=== PATIENT | female | born 1970 | race Caucasian/White ===

== ENCOUNTER 2018-03-27 13:30 | Inpatient (IN) ==
[2018-05-01] MEDS ORDERED: Dextrose 5%/NaCl 0.9% Inj 1,000 ML IV.CONT SCH (12:15)
[2018-05-01] MEDS ORDERED: Chlorhexidine Gluconate 2% 1 Pack (2 Cloths) TOPICAL ONE (12:23)
[2018-05-01] MEDS ORDERED: Metoprolol Tartrate 25 MG Tablet PO ONE (12:23)
[2018-05-01] MEDS ORDERED: Sodium Chlor 0.9% Inj 500 ML IV.SIG SCH (13:00)
[2018-05-01] MEDS ORDERED: Lidocaine PF 1% Inj 5 ML Syringe OTHER ONE (13:32)
[2018-05-01] MEDS ORDERED: Phenylephrine/NS 1000 MCG/10ML Syringe IV.PUSH ONE (13:32)
[2018-05-01] MEDS ORDERED: HYDROmorphone PF Inj 2 MG/ML Vial ONE (15:31)
[2018-05-01] MEDS ORDERED: fentaNYL Citrate Inj 100 MCG/2 ML Ampul ONE (15:36)
[2018-05-01] MEDS ORDERED: Sugammadex Inj 200 MG/2 ML Vial IV.PUSH ONE (15:52)
[2018-05-01] MEDS ORDERED: Naloxone Inj 0.4 MG/ML Vial IV.PUSH PRN (16:28)
[2018-05-01] MEDS ORDERED: Potassium Chlor 40 mEq Premix 40 MEQ/100 ML PIGGYBACK IV.SIG PRN ×2 (16:29→16:31)
[2018-05-01] MEDS ORDERED: Potassium Chlor 20 mEq Premix 20 MEQ/100 ML PIGGYBACK IV.SIG PRN ×2 (16:29→16:31)
--- NOTE | 2018-05-01 16:39 | P.BOP ---
Date of procedure: 05/01/18 Procedure: Full left colectomy, LAR,Cholecystectomy,Omental flap. Intraop colonoscopy Anesthesia: GETA Surgeon: West Lundberg MD Coordinator Skill Training Program: [facility] Estimated blood loss (mL): 100 Pathology: other Condition: stable Disposition: PACU
[2018-05-01] MEDS ORDERED: Morphine Inj 4 MG/ML Vial ONE (16:52)
[2018-05-01] MEDS ORDERED: Morphine Inj 30 MG/30 ML PCA.VIAL PCA ONE (16:57)
[2018-05-01] MEDS ORDERED: KCL 20 mEq/D5W/LR Inj 1,000 ML ONE (16:57)
[2018-05-01] MEDS ORDERED: *morphine SULFATE 4 MG/ML PERIprocedure ONLY ONE (17:01)
[2018-05-01] MEDS ORDERED: *Promethazine Inj 25 MG/ML Vial PERIprocedural use ONLY ONE (17:01)
[2018-05-01 17:02] LABS: Baso % (Auto) 0.1 % (0.0-2.0); Eos # (Auto) 0.1 th/mm3 (0.0-0.4); Eos % (Auto) 0.4 % (0.0-4.0); Hematocrit 38.5 % (35.0-46.0); Hemoglobin 12.4 gm/dL (11.6-15.3); Lymph # (Auto) 1.5 th/mm3 (1.0-4.8); Lymph % (Auto) 10.5 % (9.0-44.0); Mean Corpuscular HGB Conc 32.2 % (32.0-36.0); Mean Corpuscular Hemoglobin 28.1 pg (27.0-34.0); Mean Corpuscular Volume 87.3 fL (80.0-100.0); Mean Platelet Volume 8.1 fL (7.0-11.0); Mono # (Auto) 1.3 th/mm3 (0.0-0.9); Mono % (Auto) 8.9 % (0.0-8.0); Neut # (Auto) 11.6 th/mm3 (1.8-7.7); Neut % (Auto) 80.1 % (16.0-70.0); Platelet Count 286 th/mm3 (150-450); Red Blood Count 4.41 mil/mm3 (4.00-5.30); White Blood Count 14.5 th/mm3 (4.0-11.0)
[2018-05-01] MEDS: KCL 20 mEq/D5W/LR Inj 1,000 ML IV.CONT SCH ×2 (17:10→21:18)
[2018-05-01] MEDS: Morphine Inj 30 MG/30 ML PCA.VIAL PCA PRN (17:10)
[2018-05-01 17:22] LABS: Calcium 7.4 mg/dL (8.5-10.1); Carbon Dioxide 22.8 meq/L (21.0-32.0); Potassium 3.6 meq/L (3.5-5.1)
[2018-05-01 17:35] LABS: Total Protein 6.1 g/dL (6.4-8.2)
[2018-05-01] MEDS: Ketorolac Inj 30 MG/ML (IVP) Vial IV.PUSH PRN (18:26)
--- NOTE | 2018-05-01 19:04 | MP ---
cc: West Lundberg MD,West Hooks,Bubba Glover,Danika Tamayo DO DATE OF OPERATION: 05/01/2018 PREOPERATIVE DIAGNOSIS: Proximal and distal sigmoid colon carcinoma. POSTOPERATIVE DIAGNOSES: 1. 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 2. Cholelithiasis. OPERATIVE PROCEDURE: 1. Full left colectomy with colorectal anastomosis, low anterior resection. 2. Cholecystectomy. 3. Mobilization of the splenic flexure and omental flap. 4. Intraoperative colonoscopy. ANESTHESIA: General endotracheal. SURGEON: West Lundberg MD PACKAGE WINDER: Wang Heart MD OPERATIVE TIME: 1 hour and 45 minutes. OPERATIVE FINDINGS: This patient was referred to me by Dr. Hooks with proximal and distal sigmoid colon carcinoma along with a good size rectal polyp. The findings at Dr. Hooks's colonoscopy seemed to indicate a proximal sigmoid colon cancer that was 20 mm in diameter that was tattooed and biopsied. However, the biopsy showed only dysplasia. Secondly, the patient had a distal sigmoid colon cancer that was felt to also be a carcinoma, and it was biopsied and tattooed as well and showed also a high-grade dysplasia. The third lesion was a rectal polyp that appeared benign but showed fragments of invasive adenocarcinoma which were detached. This was felt to be detached from the upper lesion. The patient also had multiple other smaller polyps which were tubular adenomas, which were removed. After seeing the patient and deciding that a transanal excision of the lower rectal polyp would be difficult, she was referred to Dr. Glover, also of [facility] in [place], who did an endomucosal resection colonoscopically about 1 month ago of the rectal lesion, and the lesion removed was a benign polyp. No carcinoma identified. I looked at this area with flexible sigmoidoscopy last week prior to the surgery, and it appeared scarred and as if it was healing well. For this reason, we proceeded with her surgery as planned, sigmoid resection with a colorectal anastomosis above this polypectomy site. At surgery, she was found to have cholelithiasis. There were no lesions palpable in the liver. The remainder of the small bowel was palpably normal. However, the lesion in the distal sigmoid colon was palpated, and the tattoo ric was below it. However, the patient had a proximal lesion that was not in the sigmoid colon. It was in the distal transverse colon above the splenic flexure distal to her middle colic vessel distribution. This full left colon including the splenic flexure and sigmoid colon and upper rectum were all resected en bloc, and a distal transverse colon to upper rectal anastomosis was done. Adequate margins were obtained on both of the lesions. Cholecystectomy was done as mentioned above for the cholelithiasis. The splenic flexure had been mobilized and an omental flap was placed in the pelvis around the anastomosis. OPERATIVE TECHNIQUE: The patient was placed on the table in the supine position. After adequate general endotracheal anesthesia, the legs were placed in a perineal lithotomy position, and the abdomen and perineum were prepped and draped in usual manner. A transverse infraumbilical incision was carried down through the subcutaneous tissue, which was quite obese and taken down through the rectus fascia, and the rectus muscles were divided with electrocautery. The abdominal cavity was entered with the above-mentioned findings. Our attention was turned to the sigmoid colon, and it was mobilized along its peritoneal reflection, and the left ureter was identified and protected at all times. The descending colon was likewise mobilized, and on palpating the transverse colon, we noticed a carcinoma present there with a tattoo ric. This was presumably the small carcinoma that was felt to be in the proximal sigmoid colon. No other lesions were palpable in the colon other than the main sigmoid mass, which was just above the rectosigmoid junction. There was also a tattoo just below that. The full sigmoid, descending colon, and transverse colon were mobilized, and the omentum was mobilized from that transverse colon. The omentum surrounding the distal transverse colon carcinoma was left attached to the colon and excised en bloc for an adequate radial margin. The inferior mesenteric artery was doubly clamped, cut, and doubly ligated with 0 Vicryl ligature, and then the inferior mesenteric vein was likewise clamped, cut, and ligated. The lateral pelvic peritoneum was incised bilaterally, and the retrorectal space was entered. The rectum was mobilized posteriorly up to the pelvic floor. The lateral stalks were also divided with electrocautery. Once this was done, the anterior cul-de-sac peritoneum was incised, but the cul-de-sac was not dissected posterior to the vagina. Next, the mesentery of the upper rectum was clamped, cut, and ligated and divided with electrocautery just distal to the tattoo with approximately 5 cm margin from the lower sigmoid cancer. The pursestring stapling device was placed on the rectum, and the rectum was divided and our attention was turned to the distal transverse colon, and the mesocolon was clamped, cut, and ligated next to the transverse colon distal to the lesion, and the distal transverse colon was cleared, and a pursestring stapling device was placed there. Once this was done, the anvil of the 33 Ethicon EEA instrument was placed in the proximal bowel and the pursestring was tied, and then the EEA instrument was placed transanally by Dr. Heart. Once this was done, the distal pursestring was tied, and the instrument was connected, closed, and fired, creating a circular anastomosis. There was no tension on the anastomosis, and the blood supply was excellent. Dr. Heart ended colonoscopy, and at that time, he found a frond of what appeared to be a polyp which had broken off the lower sigmoid colon cancer. The previous EMR polypectomy site from 1 month ago was found in the left lateral lower rectum, below our area of the anastomosis, and this was superficially ulcerated but healing well. The mesocolon posterior to that was slightly thickened. After colonoscopy was completed and no lesions were found, Dr. Heart insufflated air into the rectum, visualizing the anastomosis with saline solution in the pelvis, and no air leaks were identified. Next, the pelvis and abdominal cavity were irrigated thoroughly with 3 L of saline solution, aspirated dry. Hemostasis was maintained throughout with electrocautery. Next, our attention was turned to the gallbladder, and traction was placed on the fundus of the gallbladder, and the cystic duct was dissected free of the common bile duct proximally. Next, the dissection of the gallbladder from the liver bed was done from above downward using electrocautery, dissecting it from the liver bed with electrocautery. Once this was done, the cystic artery was identified and separately clamped with a right angle clamp, and the cystic artery was ligated with 0 Vicryl ligature. Next, the cystic duct was likewise clamped, cut, and the gallbladder was removed from the field, and the cystic duct was ligated with 0 Vicryl ligature as well. Once this was completed, hemostasis was maintained in the liver bed with electrocautery, and the area was irrigated with saline solution, aspirated dry. The abdominal cavity was once again inspected for hemostasis. The anastomosis was under no tension. The blood supply at the anastomosis was excellent. The remainder of the omentum was brought down the left colic gutter and placed posterior to the uterus and anterior to the colorectal anastomosis, and the remainder of the small bowel was placed in the abdominal cavity in airplane tester manner. The abdominal cavity was then closed in layers using a double-stranded #1 PDS for the posterior rectus sheath, and then the muscle layer was irrigated with 1 L of saline solution, aspirated dry, and then the anterior rectus sheath was likewise closed with a double stranded #1 PDS as well. The subcutaneous tissue was irrigated thoroughly with 1 L of saline solution, aspirated dry, and the skin was closed with skin jessica because of the risk of infection with abdominal obesity. It should be mentioned that a flat 10 Iban drain was placed in the pelvis posterior to the colorectal anastomosis and brought out through a separate stab wound in the right lower quadrant prior to closing the abdomen. Dressings were applied. Sponge, needle, and instrument counts were reported as correct. Estimated blood loss was 100 mL. Operating time was 1 hour and 45 minutes. The patient tolerated the procedure well and left the operating room in good condition. MD WALLACE Salvador/roger , 04:55 PM , 05:15 PM
[2018-05-01] MEDS: ceFAZolin Inj 2,000 MG in Sodium Chlor 0.9% Inj 100 ML IV.SIG SCH (22:55)
[2018-05-02] MEDS: Zolpidem Tartrate 5 MG Tablet PO PRN ×2 (01:54→21:40)
[2018-05-02] MEDS: KCL 20 mEq/D5W/LR Inj 1,000 ML IV.CONT SCH ×6 (02:29→21:38)
[2018-05-02] MEDS: ceFAZolin Inj 2,000 MG in Sodium Chlor 0.9% Inj 100 ML IV.SIG SCH ×2 (04:49→13:51)
[2018-05-02] MEDS: Morphine Inj 30 MG/30 ML PCA.VIAL PCA PRN (05:10)
[2018-05-02 06:53] LABS: Baso % (Auto) 0.1 % (0.0-2.0); Eos % (Auto) 0.1 % (0.0-4.0); Hematocrit 37.3 % (35.0-46.0); Hemoglobin 12.3 gm/dL (11.6-15.3); Lymph # (Auto) 0.5 th/mm3 (1.0-4.8); Lymph % (Auto) 3.9 % (9.0-44.0); Mean Corpuscular Hemoglobin 28.5 pg (27.0-34.0); Mean Corpuscular Volume 86.4 fL (80.0-100.0); Mean Platelet Volume 8.5 fL (7.0-11.0); Mono # (Auto) 1.2 th/mm3 (0.0-0.9); Mono % (Auto) 9.1 % (0.0-8.0); Neut # (Auto) 11.4 th/mm3 (1.8-7.7); Neut % (Auto) 86.8 % (16.0-70.0); Platelet Count 268 th/mm3 (150-450); Red Blood Count 4.32 mil/mm3 (4.00-5.30); Red Cell Distribution Width 15.3 % (11.6-17.2); White Blood Count 13.1 th/mm3 (4.0-11.0)
[2018-05-02 07:01] LABS: Calcium 7.4 mg/dL (8.5-10.1)
[2018-05-02 07:15] LABS: Total Protein 6.4 g/dL (6.4-8.2)
[2018-05-02] MEDS: Pantoprazole Inj 40 MG Vial IV.PUSH SCH (08:51)
--- NOTE | 2018-05-02 16:08 | P.PNCS ---
Subjective Colorectal Surgery Post Op Day #: 1 Interval history: No N or V. No BMs or flatus Objective Result Diagrams: 05/02/18 05:40 05/02/18 05:40 Objective Remarks: Abd: obese,dressing dry Assessment and Plan - Plan Transfer to floor. FLD tomorrow. Ambulate. D/C PAYROLL ASSISTANT and richardson in AM ordered. Remove dressing tomorrow
[2018-05-02] MEDS ORDERED: Aluminum/Magnesium/Simethacone Susp 30 ML UDC PO PRN (21:29)
[2018-05-02] MEDS: Ketorolac Inj 30 MG/ML (IVP) Vial IV.PUSH PRN (21:39)
[2018-05-03] MEDS: Ketorolac Inj 30 MG/ML (IVP) Vial IV.PUSH PRN (03:43)
[2018-05-03] MEDS: KCL 20 mEq/D5W/LR Inj 1,000 ML IV.CONT SCH ×4 (03:43→19:31)
[2018-05-03 04:34] LABS: Baso % (Auto) 0.2 % (0.0-2.0); Eos % (Auto) 0.4 % (0.0-4.0); Hematocrit 34.6 % (35.0-46.0); Hemoglobin 11.2 gm/dL (11.6-15.3); Lymph # (Auto) 1.5 th/mm3 (1.0-4.8); Lymph % (Auto) 13.4 % (9.0-44.0); Mean Corpuscular HGB Conc 32.5 % (32.0-36.0); Mean Corpuscular Hemoglobin 28.4 pg (27.0-34.0); Mean Corpuscular Volume 87.4 fL (80.0-100.0); Mean Platelet Volume 8.4 fL (7.0-11.0); Mono # (Auto) 1.2 th/mm3 (0.0-0.9); Mono % (Auto) 10.9 % (0.0-8.0); Neut # (Auto) 8.6 th/mm3 (1.8-7.7); Neut % (Auto) 75.1 % (16.0-70.0); Platelet Count 252 th/mm3 (150-450); Red Blood Count 3.96 mil/mm3 (4.00-5.30); Red Cell Distribution Width 15.4 % (11.6-17.2); White Blood Count 11.4 th/mm3 (4.0-11.0)
[2018-05-03 04:58] LABS: Calcium 7.6 mg/dL (8.5-10.1); Carbon Dioxide 28.2 meq/L (21.0-32.0); Potassium 3.9 meq/L (3.5-5.1)
[2018-05-03] MEDS: Pantoprazole Inj 40 MG Vial IV.PUSH SCH (11:28)
[2018-05-04] MEDS: KCL 20 mEq/D5W/LR Inj 1,000 ML IV.CONT SCH ×2 (03:47→13:13)
[2018-05-04] MEDS: Pantoprazole Inj 40 MG Vial IV.PUSH SCH (09:24)
[2018-05-05] MEDS: KCL 20 mEq/D5W/LR Inj 1,000 ML IV.CONT SCH (01:09)
[2018-05-05] MEDS: Pantoprazole Inj 40 MG Vial IV.PUSH SCH (08:29)
[2018-05-05 09:17] VITALS: BP 125/75; PULSE 87; RESP 18; TEMP 98.1; O2SAT 94
--- NOTE | 2018-05-05 09:53 | P.PNCS ---
Subjective Colorectal Surgery Post Op Day #: 4 Interval history: Doing well stooling. Wants to go home today. All instructions given Objective Result Diagrams: 05/03/18 03:57 05/03/18 03:57 Objective Remarks: Abd: obese, clean, no redness. Eda remain Assessment and Plan - Plan D/C today. All instructions given. For staple removal on Wednesday 05/09 or Saturday05/13/18 A[address] path
--- NOTE | 2018-05-19 13:25 | MD ---
cc: West Lundberg MD, Louis M MD DATE OF DISCHARGE: 05/05/2018 ADMITTING DIAGNOSIS: Proximal and distal sigmoid colon carcinoma. DISCHARGE DIAGNOSES: 1. 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 2. Cholelithiasis. OPERATIVE PROCEDURE: On 05/01/2018: 1. Full left colectomy with colorectal anastomosis low anterior resection. 2. Cholecystectomy. 3. Intraoperative colonoscopy. HISTORY: This patient was referred to me by Dr. Bubba Hooks adenoma with proximal and distal sigmoid colon carcinoma along with a good sized rectal polyp. The findings with Dr. Hooks's colonoscopy seemed to indicate a proximal sigmoid colon cancer that was 20 mm in diameter that was tattooed and biopsied. The biopsy showed only dysplasia. Secondly, the patient had a distal sigmoid colon carcinoma that was felt to be a carcinoma and it was biopsied and tattooed as well and showed also a high-grade dysplasia. There was a third lesion that was a rectal polyp that appeared benign, but showed fragments of invasive adenocarcinoma, which were detached and this was felt to be detached from the upper lesion. Nevertheless, the patient was sent to Dr. Santhosh Marie of [facility] in [place] and he did an endomucosal resection colonoscopically of the rectal lesion about a month prior to this admission. LABORATORY DATA: The pathology report on the removed specimen revealed that the colon was 53 cm in length with 2 carcinomas present; one in the transverse colon, one in the sigmoid colon. The sigmoid lesion on the removed colon specimen revealed that is was 53 cm in length and there was a 2.5 cm x 2 cm lesion 4 cm from one end and a 6 cm x 3 cm lesion 3 cm from the distal end. Both of these were adenocarcinoma. The larger tumor was a grade III poorly differentiated; this was the sigmoid lesion. The smaller tumor was a grade II moderately differentiated; this was the transverse colon lesion. The larger tumor invaded the muscular propria. The smaller tumor invaded through the muscular propria into the pericolonic tissue. Lymphovascular invasion was not identified. There were no tumor deposits identified. 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 The larger distal tumor was a T2N1B; the smaller proximal tumor was a T3N1B tumor. The gallbladder showed chronic cholecystitis and cholelithiasis. HOSPITAL COURSE: The patient was admitted to the hospital and underwent a full left colectomy with colorectal anastomosis and a cholecystectomy. Postoperatively, she did well and she was started on a clear liquid diet on the first postoperative day. On the second postoperative day she was started on full liquid diet and on third postoperative day she was started on a regular diet. She was discharged from the hospital on postoperative day #4. She was instructed to do no driving for 2 weeks, do no heavy lifting for 6 weeks and to call me with any problems. She was instructed to see me in the office on 05/09/2018 or 05/13/2018 for staple removal. She was instructed to call me with any problems. MD WALLACE Salvador/[email or web address] , 12:01 PM , 12:33 PM
== END 2018-05-05 11:23 | disposition home or self-care (01) ==
LOC: HSDI 05-01 11:12 → HCPC 05-01 18:05 → N07 05-03 19:10
PROVIDERS: ADMIT Colon & Rectal Surgery; ATTEND Colon & Rectal Surgery

== ENCOUNTER 2018-05-09 04:44 | Observation (INO) ==
[2018-05-09] MEDS ORDERED: Sod Chloride 0.9% Inj 1,000 ML IV.SIG ONE (05:12)
[2018-05-09] MEDS ORDERED: Morphine Inj 4 MG/ML Vial IV.PUSH ONE (05:12)
--- NOTE | 2018-05-09 05:34 | ED ---
HPI General Chief complaint: Nausea/Vomiting/Diarrhea Stated complaint: vomiting post op Time Seen by Provider: 05/09/18 05:01 Source: patient and old records reviewed Limitations: no limitations History of Present Illness MD complaint: nausea and vomiting Onset (ago): day(s) (1) Description of Diarrhea: none Associated Abdominal Pain: Yes Location of pain: diffuse Severity scale (1-10): 10 Pain Consistency: constant Relieving factors: none Exacerbating factors: none Context: history of abdominal surgery (Partial colectomy and cholecystectomy on 05/01. This was done by Dr. Fuchs secondary to colonic masses.) Associated symptoms: loss of appetite and other (Early satiety) Related Data Home Medications Medication Instructions Recorded Confirmed omeprazole 40 mg PO DAILY 04/02/18 05/01/18 ranitidine HCl 150 mg PO TIDAC 04/02/18 05/01/18 turmeric (bulk) [Curcumin] 1 cap DAILY 04/02/18 05/01/18 Allergies Allergy/AdvReac Type Severity Reaction Status Date / Time No Known Allergies Allergy Verified 05/09/18 04:54 Review of Systems ROS: all other systems reviewed are negative FOR[facility]LY [facility] Medical History Medical History Colon cancer (Acute) GERD (gastroesophageal reflux disease) (Acute) Hiatal hernia (Acute) Shortness of breath (Acute) Wears eyeglasses (Acute) Surgical History Surgical History History of cholecystectomy (Acute) Hx of colonoscopy with polypectomy (Acute) No history of previous surgery (Acute) Social History Social History Substance History: No History of Abuse [facility] within the Last 8 Weeks: No Recent Out of Country Travel within the Last 8 Weeks: No Exam Const General: cooperative, healthy appearing, comfortable, no acute distress, well developed and well groomed Orientation: alert, awake and oriented x3 HENMT Head: normal to inspection, normocephalic and atraumatic Mouth: moist mucous membranes abnormal Eyes Conjunctivae: conjunctivae normal Sclera: sclerae normal EOM: EOM intact bilaterally Neck Neck: normal visual inspection and full ROM Chest Chest: normal inspection of the chest Resp Effort & Inspection: normal respiratory effort and able to speak in complete sentences Auscultation: clear to auscultation bilaterally Cardio Rate: regular rate Rhythm: regular rhythm GI Inspection: normal to inspection Palpation: soft and nontender Back/Spine/Pelvis Cervical Spine: cervical ROM normal Thoracic/Lumbar Spine: thoraco-lumbar ROM normal Skin General: no rashes or lesions noted and turgor normal Neuro General: alert, awake, oriented x3, moves all extremities and CN's II-XI intact bilaterally Extrem General: normal to inspection and full ROM Psych Appearance: grossly normal Mental Status: mental status grossly normal Speech and Movement: speech and movement normal Mood: congruent mood Affect: normal affect Attitude: cooperative Thought Process: normal Thought Content: normal Judgment: judgment good Course Consultations Consultation #1: Dr. Lundberg will admit Time: 07:24 Initial Documented Vital Signs Temperature 98.2 F 05/09/18 04:54 Pulse Rate 74 05/09/18 04:54 Respiratory Rate 16 05/09/18 04:54 Blood Pressure 140/79 05/09/18 04:54 Pulse Oximetry 98 05/09/18 04:54 Last Documented Vital Signs Temperature 98.2 F 05/09/18 04:54 Pulse Rate 74 05/09/18 04:54 Respiratory Rate 16 05/09/18 04:54 Blood Pressure 140/79 05/09/18 04:54 Pulse Oximetry 98 05/09/18 04:54 Medical Decision Making [facility] Narrative Medical decision making narrative: This patient is status post partial colectomy and cholecystectomy on 05/01. She was discharged on 05/05. The partial colectomy was done secondary to colonic masses. The patient reports she was doing well until yesterday when she developed early satiety followed by nausea and vomiting. On exam, her mucous membranes are slightly dry. An IV has been started. She has been given IV morphine and Zofran. Abdominal workup is in process including a CT of the abdomen and pelvis to rule out obstruction. I have placed a consult in the computer to Dr. Fuchs who did her surgery. I anticipate eventual admission to the hospital. Medical Screen Exam Complete: Yes Emergency Medical Condition: Yes Differential Diagnosis Differential Diagnosis: Differential diagnosis includes but is not limited to viral gastritis, food poisoning, pancreatitis, pneumonia, hepatitis, acute coronary syndrome, Medical Records Medical records reviewed: Yes I reviewed the patient's medical records. Lab Data Lab results reviewed: Yes I reviewed the patient's lab results. Result diagrams: 05/09/18 05:30 05/09/18 05:30 Lab Results 05/09/18 05/09/18 05/09/18 Range/Units 05:30 05:30 05:50 WBC 8.9 (4.0-11.0) th/mm3 RBC 4.27 (4.00-5.30) mil/mm3 Hgb 12.1 (11.6-15.3) gm/dL Hct 36.7 (35.0-46.0) % MCV 86.1 (80.0-100.0) fL MCH 28.4 (27.0-34.0) pg MCHC 33.0 (32.0-36.0) % RDW 15.1 (11.6-17.2) % Plt Count 424 D (150-450) th/mm3 MPV 7.9 (7.0-11.0) fL Neut % (Auto) 74.6 H (16.0-70.0) % Lymph % (Auto) 13.4 (9.0-44.0) % Kerr % (Auto) 10.3 H (0.0-8.0) % Eos % (Auto) 0.9 (0.0-4.0) % Baso % (Auto) 0.8 (0.0-2.0) % Neut # (Auto) 6.6 (1.8-7.7) th/mm3 Lymph # (Auto) 1.2 (1.0-4.8) th/mm3 Kerr # (Auto) 0.9 (0.0-0.9) th/mm3 Eos # (Auto) 0.1 (0.0-0.4) th/mm3 Baso # (Auto) 0.1 (0.0-0.2) th/mm3 WBC Differential . Differential Comment Auto diff final Sodium 142 (136-145) meq/L Potassium 3.6 (3.5-5.1) meq/L Chloride 106 (98-107) meq/L Carbon Dioxide 25.8 (21.0-32.0) meq/L Anion Gap 10 (5-15) meq/L BUN 10 (7-18) mg/dL Creatinine 0.64 (0.50-1.00) mg/dL Estimated GFR Greater than 89 (>89) mL/min Random Glucose 95 (74-106) mg/dL Calcium 8.1 L (8.5-10.1) mg/dL Total Bilirubin 0.4 (0.2-1.0) mg/dL AST 42 H (15-37) U/L ALT 36 (10-53) U/L Alkaline Phosphatase 111 (45-117) U/L Total Protein 6.7 (6.4-8.2) g/dL Albumin 2.7 L (3.4-5.0) g/dL Lipase 91 (73-393) U/L Urine Color Yellow (Yellw/Straw) Urine Clarity Hazy H (Clear) Urine pH 5.0 (5.0-8.5) Ur Specific [place] 1.019 (1.002-1.035) Urine Protein Negative (Neg-Trace) mg/dL Urine Glucose (UA) Negative (Negative) mg/dL Urine Ketones 20 (Negative) mg/dL Urine Occult Blood Small H (Negative) Urine Nitrate Negative (Negative) Urine Bilirubin Negative (Negative) Urine Urobilinogen 2.0 H (Less than 2) mg/dL Ur Leukocyte Esterase Small H (Negative) Urine RBC 1 (0-3) /hpf Urine WBC 24 H (0-5) /hpf Ur Squamous Epith Cells 4 (0-5) /hpf Urine Bacteria Rare H (None) /hpf Urine Mucus Few H (Occasional) /lpf Micro UA Comment Culture indicated Ur Microscopic Review Not Reportable Urine Culture Comments Culture indicated Imaging Data Radiologist's impression: Abdomen/Pelvis CT 05/09/18 05:12 CONCLUSION: 1. Interim sigmoid colectomy and anastomosis. 2. Small, nonspecific ascites, mostly in the upper abdomen. 3. Small bubbles of free air, one adjacent to the stomach and one in the pelvic cavity. 4. Suspected mild small bowel ileus. No abrupt caliber changes are demonstrated. 5. Interim cholecystectomy without evidence of an associated acute complication. 6. Mild body wall edema. 7. Mild bibasilar atelectasis. Discharge Plan Discharge Disposition Patient Disposition: 30 Still Patient Discharge Details Diagnosis: Early satiety Physicians Team ED Provider: Susan Silver Primary Care Provider: Danika Quiles Other Providers: Taty Renee Rxs /Orders / Referrals /Forms Prescriptions: No Action omeprazole 40 mg Capsule,Delayed Release(Dr/Ec) 40 mg PO DAILY RF: 0 ranitidine HCl 150 mg Tablet 150 mg PO TIDAC RF: 0 turmeric (bulk) [Curcumin] 95 % Powder 1 cap DAILY RF: 0 Status ED Status: With Doctor
[2018-05-09 05:51] LABS: Baso # (Auto) 0.1 th/mm3 (0.0-0.2); Baso % (Auto) 0.8 % (0.0-2.0); Eos # (Auto) 0.1 th/mm3 (0.0-0.4); Eos % (Auto) 0.9 % (0.0-4.0); Hematocrit 36.7 % (35.0-46.0); Hemoglobin 12.1 gm/dL (11.6-15.3); Lymph # (Auto) 1.2 th/mm3 (1.0-4.8); Lymph % (Auto) 13.4 % (9.0-44.0); Mean Corpuscular Hemoglobin 28.4 pg (27.0-34.0); Mean Corpuscular Volume 86.1 fL (80.0-100.0); Mean Platelet Volume 7.9 fL (7.0-11.0); Mono # (Auto) 0.9 th/mm3 (0.0-0.9); Mono % (Auto) 10.3 % (0.0-8.0); Neut # (Auto) 6.6 th/mm3 (1.8-7.7); Neut % (Auto) 74.6 % (16.0-70.0); Platelet Count 424 th/mm3 (150-450); Red Blood Count 4.27 mil/mm3 (4.00-5.30); Red Cell Distribution Width 15.1 % (11.6-17.2); White Blood Count 8.9 th/mm3 (4.0-11.0)
[2018-05-09 06:14] LABS: Alanine Aminotransferase 36 U/L (10-53); Albumin 2.7 g/dL (3.4-5.0); Anion Gap 10 meq/L (5-15); Aspartate Aminotransferase 42 U/L (15-37); Blood Urea Nitrogen 10 mg/dL (7-18); Calcium 8.1 mg/dL (8.5-10.1); Carbon Dioxide 25.8 meq/L (21.0-32.0); Chloride 106 meq/L (98-107); Glomerular Filtration Rate Greater Than 89 mL/min (>89); Glucose,Random 95 mg/dL (74-106); Lipase 91 U/L (73-393); Potassium 3.6 meq/L (3.5-5.1); Sodium 142 meq/L (136-145)
[2018-05-09 06:17] LABS: Alkaline Phosphatase 111 U/L (45-117); Total Protein 6.7 g/dL (6.4-8.2)
[2018-05-09 06:22] LABS: Bacteria,Urine Rare /hpf; Bilirubin,Urine Negative (Negative); Clarity,Urine Hazy (Clear); Color,Urine Yellow (Yellw/Straw); Glucose,Urine (UA) Negative (Negative); Leukocyte Esterase,Urine Small (Negative); Mucus,Urine Few /lpf (Occasional); Nitrite,Urine Negative (Negative); Specific Gravity,Urine 1.019 (1.002-1.035); Squamous Epithelial Cell,Urine 4 /hpf (0-5)
--- NOTE | 2018-05-09 06:54 | CT ---
EXAM DATE: 05/09/2018 6:34 AM EDT AGE/SEX: 48 years / Female INDICATIONS: Abdominal pain, nausea, vomiting. CLINICAL DATA: This is the patient's initial encounter. Patient reports that signs and symptoms have been present for 1 week and indicates a pain score of 8/10. MEDICAL/SURGICAL HISTORY: Carcinoma, colon. CABG. Partial colectomy and cholecystectomy on 05/01 ORAL CONTRAST: No oral contrast ingested. RADIATION DOSE: 13.56 CTDI (mGy) COMPARISON: [facility], CT ABDOMEN AND PELVIS W/ CONTRAST, 02/26/2018. . TECHNIQUE: Multiple contiguous axial images were obtained through the abdomen and pelvis following b olus infusion of 96 ml Omnipaque 350 (iohexol) nonionic water-soluble contrast as a single exam dos e. No oral contrast ingested. Using automated exposure control and adjustment of the mA and/or kV ac cording to patient size, radiation dose was kept as low as reasonably achievable to obtain optimal di agnostic quality images. DICOM format image data is available electronically for review and comparis on. FINDINGS: There is mesenteric edema. Small ascites present, mostly around the liver and stomach without anythin g loculated or drainable. A small bubble of intraperitoneal gas is seen adjacent to the greater curva ture of the stomach, series 2 image 30. In the pelvic cavity sigmoid colectomy changes and anastomosi s are noted without obstruction. A small bubble of gas is seen in the presacral space left of midline , series 2 image 80. This is several centimeters away from the anastomosis. Nonobstructive bowel gas pattern although a mild ileus, especially of the small bowel, is possible.. There is mild body wall edema. Solid organs are within normal limits. Interim cholecystectomy. Trace atelectasis of the visualized lung bases. CONCLUSION: 1. Interim sigmoid colectomy and anastomosis. 2. Small, nonspecific ascites, mostly in the upper abdomen. 3. Small bubbles of free air, one adjacent to the stomach and one in the pelvic cavity. 4. Suspected mild small bowel ileus. No abrupt caliber changes are demonstrated. 5. Interim cholecystectomy without evidence of an associated acute complication. 6. Mild body wall edema. 7. Mild bibasilar atelectasis. Electronically signed by: West Nelson MD 05/09/2018 6:52 AM EDT
[2018-05-09] MEDS: KCL 20 mEq/D5W/LR Inj 1,000 ML IV.CONT SCH ×2 (09:31→17:32)
[2018-05-09] MEDS ORDERED: Aluminum/Magnesium/Simethacone Susp 30 ML UDC PO PRN (12:02)
--- NOTE | 2018-05-09 17:40 | MH ---
cc: West Lundberg MD, John T MD Agnone, Louis M MD DATE OF ADMISSION: 05/09/2018 CHIEF COMPLAINT: Nausea, vomiting. HISTORY OF PRESENT ILLNESS: This patient is well known to me. She had 2 separate colon carcinomas, one in the distal transverse colon and one in the distal sigmoid colon, resected 8 days ago with a full left colectomy and colorectal anastomosis. The patient was discharged from the hospital on the fourth postoperative day 4 days ago and was eating a regular diet. She was progressing well at home and then this morning she woke up with nausea, vomiting, had 4 episodes of vomiting. She became concerned and says that she called my answering service at 4 a.m. and she did not receive a call back from Dr. Renee. She therefore decided to go to the emergency department. The emergency department saw the patient, did a CT scan of the abdomen and pelvis, which was essentially normal. The patient's nausea has passed with some Zofran and she has not vomited any further. The CT scan did show an air fluid level in her stomach and some air in her stomach. She did have a few scattered air bubbles, but no large amount of free air. She says that she has no abdominal pain whatsoever at this time. She was admitted to my service prior to me seeing her. As much as she was having nausea and vomiting, we did not feel that she could go home. Since that has passed, we likely will advance her diet rapidly tomorrow and send her home. She says that she has been stooling loose stools since hospitalization. They have been starting to firm up. She has not had a bowel motion today. She says that she is voiding her urine normally. Past medical history, family history, social history, and review of systems are otherwise negative. She did undergo an EMR procedure on a large rectal polyp 1 month ago in [place] with Dr. Santhosh Glover. That was a benign polyp. The 2 lesions that were in her colon that we resected last week, one was a T2, the other was a T3. Three of 31 lymph nodes were involved and I had left a message at her home this week confirming that diagnosis. At this time, she is in no acute distress. PHYSICAL EXAMINATION: GENERAL: A well-developed, obese female in no acute distress. SKIN: Warm and dry. HEENT: Extraocular muscles intact. NECK: Supple. CHEST: Clear. HEART: S1, S2 is heard. No murmurs or gallops. ABDOMEN: Flat, soft, nontender, no masses. She has a transverse incision with jessica intact. There is no redness, no sign of any infection. RECTAL: Exam was not done. EXTREMITIES: Range of motion within normal limits. NEUROLOGIC: Grossly normal. IMPRESSION: Eight days status post full left colectomy with colorectal anastomosis with an acute onset of nausea, vomiting early this morning, which prompted her to come to the emergency department. It has all passed now and she is not having any nausea or vomiting at this time. She is having no abdominal pain. PLAN: I will have her jessica removed tomorrow morning and the wound Steri-Stripped. We will start her on a regular diet tomorrow morning and see how she does. If she does well, we will discharge her from the hospital tomorrow morning. I have explained all this to her and her mother, and they are agreeable. MD WALLACE Salvador/tanner , 05:12 PM , 05:20 PM
[2018-05-09] MEDS: Aluminum/Magnesium/Simethacone Susp 30 ML UDC PO PRN (23:24)
[2018-05-10] MEDS: KCL 20 mEq/D5W/LR Inj 1,000 ML IV.CONT SCH (00:34)
[2018-05-10 07:31] LABS: Baso # (Auto) 0.1 th/mm3 (0.0-0.2); Baso % (Auto) 0.9 % (0.0-2.0); Eos # (Auto) 0.1 th/mm3 (0.0-0.4); Eos % (Auto) 1.6 % (0.0-4.0); Hematocrit 35.6 % (35.0-46.0); Hemoglobin 11.9 gm/dL (11.6-15.3); Lymph # (Auto) 1.7 th/mm3 (1.0-4.8); Lymph % (Auto) 22.2 % (9.0-44.0); Mean Corpuscular HGB Conc 33.4 % (32.0-36.0); Mean Corpuscular Hemoglobin 28.8 pg (27.0-34.0); Mean Corpuscular Volume 86.1 fL (80.0-100.0); Mean Platelet Volume 7.8 fL (7.0-11.0); Mono # (Auto) 0.9 th/mm3 (0.0-0.9); Mono % (Auto) 11.8 % (0.0-8.0); Neut # (Auto) 4.9 th/mm3 (1.8-7.7); Neut % (Auto) 63.5 % (16.0-70.0); Platelet Count 462 th/mm3 (150-450); Red Blood Count 4.14 mil/mm3 (4.00-5.30); Red Cell Distribution Width 15.2 % (11.6-17.2); White Blood Count 7.7 th/mm3 (4.0-11.0)
[2018-05-10] MEDS: Aluminum/Magnesium/Simethacone Susp 30 ML UDC PO PRN (07:49)
[2018-05-10 07:51] LABS: Calcium 8.1 mg/dL (8.5-10.1); Carbon Dioxide 25.7 meq/L (21.0-32.0); Potassium 3.7 meq/L (3.5-5.1)
[2018-05-10 08:19] VITALS: BP 140/85; PULSE 78; RESP 16; TEMP 98.1; O2SAT 96
[2018-05-10] MEDS ORDERED: Ondansetron Liq 4 MG/5 ML UDC PO PRN (11:02)
== END 2018-05-10 12:42 | disposition home or self-care (01) ==
LOC: NEPE 04:44 → NEDA 07:23 → INTOOBSV 07:23 → NEDA 09:00 → NEPGCP 10:07
PROVIDERS: ADMIT Colon & Rectal Surgery; ATTEND Colon & Rectal Surgery
DX: E66.9 Obesity, unspecified; B96.89 Other specified bacterial agents as the cause of diseases classified elsewhere; R19.7 Diarrhea, unspecified; R11.2 Nausea with vomiting, unspecified; R63.0 Anorexia; C18.9 Malignant neoplasm of colon, unspecified; K44.9 Diaphragmatic hernia without obstruction or gangrene; Z95.1 Presence of aortocoronary bypass graft; Z79.899 Other long term (current) drug therapy; K21.9 Gastro-esophageal reflux disease without esophagitis; R68.81 Early satiety; R06.02 Shortness of breath; R18.8 Other ascites